=== PATIENT | male | born 1940 | race Caucasian/White ===

== ENCOUNTER 2019-04-18 21:56 | Inpatient (IN) | payer OTHER ==
[~2019-04-18] VITALS: Ht 165.1 cm; Wt 52.8 kg
[2019-04-18] MEDS ORDERED: MAGNESIUM HYDROXIDE 30 ML LIQUID UDC PO PRN (22:30)
[2019-04-18] MEDS ORDERED: TEMAZEPAM 7.5 MG CAPSULE PO PRN (22:30)
[2019-04-18] MEDS ORDERED: MAG HYDROX/AL HYDROX/SIMETH 30 ML LIQUID UDC PO PRN (22:30)
[2019-04-18 22:40] VITALS: BP 148/78
[2019-04-18] MEDS: ACETAMINOPHEN 325 MG TABLET PO PRN (23:12)
--- NOTE | 2019-04-19 01:17 | NUR ---
received to care, a transfer from [facility], on a 72 hour hold for gravely disabled, a resident of [facility]. according to the hold, he was discharged from [facility] on 04/16/19 to the [facility], but the first night was agitated, non compliant, and aggressive, so he was sent back to [place], on 04/17/19. during his previous admission, he had a suicide attempt. upon arrival, he was confused and disoriented. he did state that he was not suicidal, at this time, but acknowledged being so, in the past. pt was advised of [facility], and given pt rights booklet. he appeared very restless, with unsteady gait. placed in the grover chair, for safety. PRN restoril was given at 2312 for insomnia, but remains awake, but less restless, and more directable. no distress noted. monitored closely, for safety.
[2019-04-19] MEDS ORDERED: BLOO-668 IN (03:05)
[2019-04-19] MEDS ORDERED: MIRT15TA PO (03:05)
[2019-04-19] MEDS ORDERED: RIVA1PAT3 PO (03:05)
[2019-04-19] MEDS ORDERED: RISP0.5T5 PO (03:05)
[2019-04-19] MEDS ORDERED: RISP0.253 PO (03:05)
[2019-04-19] MEDS ORDERED: DONE10TA44 PO (03:05)
[2019-04-19] MEDS ORDERED: INSU100V10 SQ (03:05)
[2019-04-19] MEDS ORDERED: MEMA10TA PO (03:05)
[2019-04-19] MEDS ORDERED: NUT.237L36 PO (03:05)
[2019-04-19] MEDS ORDERED: ASPI-605 PO (03:05)
[2019-04-19] MEDS ORDERED: ALBU8.5H8 IH (03:05)
[2019-04-19] MEDS ORDERED: DOCU250C14 PO (03:05)
[2019-04-19] MEDS ORDERED: GUAI600T53 PO (03:05)
[2019-04-19] MEDS ORDERED: FLUT1BLS IH (03:05)
[2019-04-19] MEDS ORDERED: BUDE10.2 INH (03:05)
[2019-04-19] MEDS ORDERED: CHOL100062 PO (03:05)
--- NOTE | 2019-04-19 04:00 | NUR ---
remains restless and easily agitated. assisted to bathroom several times. fluids given. continues to attempt to get out of chair. unable to contract for safety. occasionally becomes verbally hostile, and posturing with his fists. difficult to redirect. will continue to monitor closely.
--- NOTE | 2019-04-19 05:10 | NUR ---
appears to be asleep. no distress noted.
--- NOTE | 2019-04-19 05:33 | NUR ---
is now awake, attempting to climb out of chair. monitored closely for safety.
--- NOTE | 2019-04-19 06:37 | NUR ---
slept 1 hour, total. is now dozing off, intermittently. cooperative with lab draw. AM accucheck was 89. no distress noted.
[2019-04-19 07:12] LABS: ALANINE AMINOTRANSFERASE 21 U/L (16-63); ALKALINE PHOSPHATASE 74 U/L (50-136); ASPARTATE AMINOTRANSFERASE 21 U/L (15-37); BILIRUBIN,TOTAL 0.8 mg/dL (0.2-1.0); CARBON DIOXIDE 25 mmol/L (21-32); CHLORIDE 106 mmol/L (98-107); CREATININE 1.4 mg/dL (0.6-1.3); GLUCOSE 91 mg/dL (74-106); POTASSIUM 4.1 mmol/L (3.5-5.1); TOTAL PROTEIN, SERUM 6.9 g/dL (6.4-8.2); UREA NITROGEN, BLOOD 17 mg/dL (7-18)
[2019-04-19 07:30] VITALS: BP 133/64
[2019-04-19] MEDS: LORAZEPAM 0.5 MG TABLET PO PRN ×2 (08:01→15:31)
[2019-04-19] MEDS: ACETAMINOPHEN 325 MG TABLET PO PRN (08:01)
[2019-04-19] MEDS ORDERED: ALBUTEROL SULFATE 2.5 MG/3 ML NEBU NEB PRN (12:30)
[2019-04-19] MEDS ORDERED: INSULIN REGULAR, HUMAN 300 UNIT/3 ML VIAL SQ PRN (12:30)
[2019-04-19] MEDS ORDERED: DEXTROSE 50% 50 ML DISP.SYRIN IV PRN (12:30)
[2019-04-19] MEDS ORDERED: ALBUTEROL SULFATE 8 GM HFA.AER.AD IH PRN (13:15)
[2019-04-19] MEDS ORDERED: risperiDONE 0.25 MG TABLET PO SCH (13:45)
[2019-04-19] MEDS: risperiDONE 1 MG TABLET PO SCH ×2 (13:57→21:12)
[2019-04-19] MEDS: GLUCERNA 1.2 1000ML LIQUID PO SCH ×2 (14:10→16:30)
[2019-04-19 16:00] VITALS: BP 148/77
[2019-04-19] MEDS: BLOOD SUGAR DIAGNOSTIC 1 EACH STRIP VI SCH ×2 (16:29→21:27)
[2019-04-19 19:43] VITALS: BP 127/61
[2019-04-19] MEDS: INSULIN GLARGINE,HUM 300 UNITS/3 ML CARTRIDGE SQ SCH (21:00)
[2019-04-19] MEDS ORDERED: FLUTICASONE/SALMETEROL 250/50 INHALER INH SCH (21:00)
--- NOTE | 2019-04-19 21:10 | NUR ---
[facility] paged through [address] regarding the need for H&P and CXR follow up. Awaiting call back.
[2019-04-19] MEDS: GUAIFENESIN LA 600 MG TABLET.SA PO SCH (21:11)
[2019-04-19] MEDS: MIRTAZAPINE 15 MG TABLET PO SCH (21:12)
--- NOTE | 2019-04-19 21:52 | NUR ---
RECEIVED PATIENT IN BED SLEEPING INTERMITTENTLY WITH 1;1 SITTER BY HIS SIDE FOR SAFETY.HE WAS COOPERATIVE WITH HIS MEDS WHICH WAS CRUSHED IN APPLESAUCE WITH HEAD OF BED RAISED TO PREVENT ASPIRATION. ON BLOOD SUGAR CHECK WITH INSULIN LANTUS COVERAGE. BS101 SO LANTUS WAS HELD .WILL CONTINUE TO MONITOR.
--- NOTE | 2019-04-20 06:56 | NUR ---
SLEPT APPROX.FOR 06;00HRS.BLOOD SUGAR CHECK IS 71.ORANGE JUICE GIVEN.
[2019-04-20] MEDS: BLOOD SUGAR DIAGNOSTIC 1 EACH STRIP VI SCH ×4 (07:03→20:53)
[2019-04-20 07:58] VITALS: BP 119/61
[2019-04-20] MEDS: risperiDONE 1 MG TABLET PO SCH ×2 (08:17→20:41)
[2019-04-20] MEDS: CHOLECALCIFEROL 1,000 UNIT TABLET PO SCH (08:17)
[2019-04-20] MEDS: DOCUSATE SODIUM 100 MG CAPSULE PO SCH (08:17)
[2019-04-20] MEDS: FLUTICASONE/VILANTEROL 1 EACH BLST.W.DEV IH SCH (08:17)
[2019-04-20] MEDS: GUAIFENESIN LA 600 MG TABLET.SA PO SCH ×2 (08:17→20:41)
[2019-04-20] MEDS: ASPIRIN EC 81 MG TABLET.DR PO SCH (08:17)
[2019-04-20] MEDS: GLUCERNA 1.2 1000ML LIQUID PO SCH ×3 (08:18→16:53)
[2019-04-20] MEDS ORDERED: DOCUSATE SODIUM 250 MG CAPSULE PO SCH (09:00)
[2019-04-20 14:17] LABS: BASOPHILS % (AUTO) 0.5 % (0.0-2.0); EOSINOPHILS # (AUTO) 0.3 K/uL (0.0-0.7); EOSINOPHILS % (AUTO) 4.2 % (0.0-7.0); HEMATOCRIT 37.4 % (36.7-47.1); HEMOGLOBIN 12.6 g/dL (12.5-16.3); LYMPHOCYTES # (AUTO) 1.4 K/uL (20.0-40.0); LYMPHOCYTES % (AUTO) 21.5 % (20.5-51.5); MEAN CORPUSCULAR HEMOGLOBIN 33.6 uug (23.8-33.4); MEAN CORPUSCULAR HGB CONC 34 g/dL (32.5-36.3); MEAN CORPUSCULAR VOLUME 99.6 fL (73.0-96.2); MONOCYTES # (AUTO) 0.4 K/uL (2.0-10.0); MONOCYTES % (AUTO) 6.9 % (0.0-11.0); NEUTROPHILS # (AUTO) 4.3 K/uL (1.8-8.9); NEUTROPHILS % (AUTO) 66.9 % (38.5-71.5); PLATELET COUNT (AUTO) 228 K/uL (152-348); RED BLOOD CELL COUNT(AUTO) 3.75 MIL/uL (4.06-5.63); WHITE BLOOD COUNT (AUTO) 6.4 K/uL (3.6-10.2)
[2019-04-20 15:20] VITALS: BP 128/62
[2019-04-20] MEDS: LORAZEPAM 0.5 MG TABLET PO PRN ×2 (17:34→22:44)
[2019-04-20 19:39] VITALS: BP 113/67
[2019-04-20] MEDS: MIRTAZAPINE 15 MG TABLET PO SCH (20:41)
[2019-04-20] MEDS: INSULIN GLARGINE,HUM 300 UNITS/3 ML CARTRIDGE SQ SCH (20:54)
--- NOTE | 2019-04-20 21:42 | NUR ---
Sitting in gerichair in H/w cooperative with staff and medication compliant. H.S. blood sugar 115 held routine dose of Lantus states" he will not take his hs snack.
--- NOTE | 2019-04-20 23:00 | NUR ---
Transfer to bed from [facility] pt requested to use B/R to void. While assisting the patient to the b/r pt became confused and refused to use the toilet and tried to void in the trash can. Pt refused to take directions from staff and became very agitated and striking out toward staff. After obtaining assistance from the inside sales lead we were able to walk pt back to his bed.
--- NOTE | 2019-04-20 23:57 | NUR ---
Lying in bed eye closed appear resting comfortably siderails up. Bed alarm on,
--- NOTE | 2019-04-21 01:00 | NUR ---
Awake refusing to return to bed. gait unsteady.Offered toilet and h20. Placed in h/w grover chair for pt safety.
--- NOTE | 2019-04-21 03:30 | NUR ---
Pt finally fell asleep eyes closed resp even unlab.
[2019-04-21] MEDS: BLOOD SUGAR DIAGNOSTIC 1 EACH STRIP VI SCH ×2 (06:26→11:30)
--- NOTE | 2019-04-21 06:49 | NUR ---
Slept 3.3 hours of intermittent sleep. lying in bed eyes closed resp even and unlab. Side rails up Bed alarm on.
[2019-04-21 07:30] VITALS: BP 127/71
[2019-04-21] MEDS: CHOLECALCIFEROL 1,000 UNIT TABLET PO SCH (08:38)
[2019-04-21] MEDS: risperiDONE 1 MG TABLET PO SCH (08:38)
[2019-04-21] MEDS: ASPIRIN EC 81 MG TABLET.DR PO SCH (08:38)
[2019-04-21] MEDS: DOCUSATE SODIUM 100 MG CAPSULE PO SCH (08:38)
[2019-04-21] MEDS: GUAIFENESIN LA 600 MG TABLET.SA PO SCH (08:38)
[2019-04-21] MEDS: GLUCERNA 1.2 1000ML LIQUID PO SCH (08:39)
[2019-04-21] MEDS: FLUTICASONE/VILANTEROL 1 EACH BLST.W.DEV IH SCH (08:44)
--- NOTE | 2019-04-21 12:55 | NUR ---
GPS: Nursing Notes: Discharge to ER: Patient's LOC changed, SOB, O2 Sat. 44%, at 12:45hrs, charge nurse called rapid respond, B/P=175/111, 97, labor respiration, transfer to ER at this time, Dr. Cullen and Lacy notified.
--- NOTE | 2019-04-21 12:55 | NUR ---
GPS: Nursing Notes: Discharge to ER: Report and med. reconciliation given to nurse Angel GARDNER.
[2019-04-21] MEDS ORDERED: RISP1TAB27 PO (14:03)
[2019-04-21] MEDS ORDERED: MAG355OR18 PO (14:03)
[2019-04-21] MEDS ORDERED: GUAI600T53 PO (14:03)
[2019-04-21] MEDS ORDERED: MIRT15TA PO (14:03)
[2019-04-21] MEDS ORDERED: ALBU2.5V7 IH (14:03)
[2019-04-21] MEDS ORDERED: ACET325T53 PO (14:03)
[2019-04-21] MEDS ORDERED: DEXT50DI8 IV (14:03)
[2019-04-21] MEDS ORDERED: MAGN400O6 PO (14:03)
[2019-04-21] MEDS ORDERED: NUT.237L30 PO (14:03)
[2019-04-21] MEDS ORDERED: LORA-258 PO (14:03)
== END 2019-04-21 12:55 | disposition short-term general hospital (02) | DRG 885 ==
LOC: GPS 21:56
PROVIDERS: ADMIT Psychiatry & Neurology Psychiatry; ATTEND Nurse Practitioner Acute Care
DX: F29 Unspecified psychosis not due to a substance or known physiological condition (principal); I11.0 Hypertensive heart disease with heart failure; I50.33 Acute on chronic diastolic (congestive) heart failure; J44.9 Chronic obstructive pulmonary disease, unspecified; E11.9 Type 2 diabetes mellitus without complications; E78.5 Hyperlipidemia, unspecified; I10 Essential (primary) hypertension; G47.00 Insomnia, unspecified; F03.90 Unspecified dementia, unspecified severity, without behavioral disturbance, psychotic disturbance, mood disturbance, and anxiety; Z91.19 Patient's noncompliance with other medical treatment and regimen
CPT/HCPCS: 36415; 71045; 85025; J1815; Z7610

== ENCOUNTER 2019-04-21 13:02 | Inpatient (IN) | payer MEDICARE, OTHER ==
[~2019-04-21] VITALS: Ht 175.3 cm; Wt 57.6 kg
[2019-04-21] VITALS (8 sets, daily range): BP systolic 99–153; BP diastolic 50–91
[~2019-04-21 13:02] MED LIST: ALBU8.5H8 IH; ASPI-605 PO; BLOO-668 IN; BUDE10.2 INH; CHOL100062 PO; DOCU250C14 PO; FLUT1BLS IH; GUAI600T53 PO; INSU100V10 SQ; NUT.237L36 PO
[2019-04-21] MEDS ORDERED: IPRATROPIUM BROMIDE 0.5 MG/2.5 ML NEBU ONE (13:13)
[2019-04-21] MEDS ORDERED: ALBUTEROL SULFATE 2.5 MG/3 ML NEBU ONE (13:13)
[2019-04-21] MEDS ORDERED: IV NORMAL SALINE 500 ML BAG IV ONE (13:15)
[2019-04-21] MEDS ORDERED: ALBUTEROL SULFATE 2.5 MG/3 ML NEBU NEB ONE (13:15)
[2019-04-21] MEDS ORDERED: IPRATROPIUM BROMIDE 0.5 MG/2.5 ML NEBU NEB ONE (13:15)
[2019-04-21 13:43] LABS: BASOPHILS # (AUTO) 0.1 K/uL (0.0-8.0); BASOPHILS % (AUTO) 0.6 % (0.0-2.0); EOSINOPHILS # (AUTO) 0.3 K/uL (0.0-0.7); EOSINOPHILS % (AUTO) 3.4 % (0.0-7.0); HEMATOCRIT 42.2 % (36.7-47.1); HEMOGLOBIN 14.2 g/dL (12.5-16.3); LYMPHOCYTES # (AUTO) 3.1 K/uL (20.0-40.0); LYMPHOCYTES % (AUTO) 32.7 % (20.5-51.5); MEAN CORPUSCULAR HEMOGLOBIN 33.5 uug (23.8-33.4); MEAN CORPUSCULAR HGB CONC 34 g/dL (32.5-36.3); MEAN CORPUSCULAR VOLUME 99.5 fL (73.0-96.2); MONOCYTES # (AUTO) 0.5 K/uL (2.0-10.0); MONOCYTES % (AUTO) 5.6 % (0.0-11.0); NEUTROPHILS # (AUTO) 5.5 K/uL (1.8-8.9); NEUTROPHILS % (AUTO) 57.7 % (38.5-71.5); PLATELET COUNT (AUTO) 240 K/uL (152-348); RED BLOOD CELL COUNT(AUTO) 4.25 MIL/uL (4.06-5.63); WHITE BLOOD COUNT (AUTO) 9.6 K/uL (3.6-10.2)
[2019-04-21 13:46] LABS: CARBON DIOXIDE 24 mmol/L (21-32); CHLORIDE 107 mmol/L (98-107); CREATININE 1.5 mg/dL (0.6-1.3); GLUCOSE 145 mg/dL (74-106); POTASSIUM 4.3 mmol/L (3.5-5.1); UREA NITROGEN, BLOOD 18 mg/dL (7-18)
[2019-04-21 13:47] LABS: ABG BASE EXCESS 0.2 mmol/L; ABG HCO3 26.5 mmol/L; ABG PCO2 48.9 mmHg (35.0-45.0); ABG PH 7.351 (7.350-7.450); ABG PO2 68.4 mmHg (75.0-100.0); ABG SITE RIGHT RADIAL; ABG TOTAL HEMOGLOBIN 13.8 G/dL (13.5-18.0); COHb 1.2 % (0.5-1.5); MetHb 0.3 % (0.0-1.5); O2Hb 90.7 % (94.0-97.0); VENT MODE Nasal Cannula
[2019-04-21 13:52] LABS: ALANINE AMINOTRANSFERASE 16 U/L (16-63); ALKALINE PHOSPHATASE 72 U/L (50-136); ASPARTATE AMINOTRANSFERASE 16 U/L (15-37); BILIRUBIN,DIRECT 0.1 mg/dL (0.0-0.2); BILIRUBIN,TOTAL 0.5 mg/dL (0.2-1.0); TOTAL PROTEIN, SERUM 6.9 g/dL (6.4-8.2)
[2019-04-21] MEDS ORDERED: GUAI600T53 PO (14:03)
[2019-04-21] MEDS ORDERED: DEXT50DI8 IV (14:03)
[2019-04-21] MEDS ORDERED: MIRT15TA PO (14:03)
[2019-04-21] MEDS ORDERED: RISP1TAB27 PO (14:03)
[2019-04-21] MEDS ORDERED: LORA-258 PO (14:03)
[2019-04-21] MEDS ORDERED: MAG355OR18 PO (14:03)
[2019-04-21] MEDS ORDERED: ACET325T53 PO (14:03)
[2019-04-21] MEDS ORDERED: ALBU2.5V7 IH (14:03)
[2019-04-21] MEDS ORDERED: NUT.237L30 PO (14:03)
[2019-04-21] MEDS ORDERED: MAGN400O6 PO (14:03)
[2019-04-21] MEDS: POTASSIUM CHLORIDE 50 ML IV SCH ×4 (14:10→18:46)
[2019-04-21] MEDS ORDERED: POTASSIUM CHLORIDE 50 ML ONE (14:12)
[2019-04-21] MEDS ORDERED: ALBUTEROL SULFATE 2.5 MG/3 ML NEBU IH PRN (15:45)
[2019-04-21] MEDS ORDERED: HALOPERIDOL LACTATE 5 MG/1 ML VIAL IM ONE (15:45)
[2019-04-21] MEDS ORDERED: ONDANSETRON 4 MG/2 ML VIAL IV PRN (15:45)
[2019-04-21] MEDS ORDERED: OLANZAPINE 10 MG VIAL IM ONE (15:45)
[2019-04-21] MEDS ORDERED: DEXAMETHASONE SOD PHOSPHATE 10 MG INJ IV ONE (15:45)
[2019-04-21] MEDS ORDERED: DEXTROSE 50% 50 ML DISP.SYRIN IV PRN (16:00)
[2019-04-21] MEDS: BLOOD SUGAR DIAGNOSTIC 1 EACH STRIP VI SCH ×2 (16:15→21:09)
[2019-04-21] MEDS: IV NS 1000 ML 1,000 ML IV PRN (16:29)
[2019-04-21] MEDS ORDERED: VANCOMYCIN IV 1 G in PREMIXED 0 EACH IV SCH (16:45)
[2019-04-21] MEDS: INSULIN REGULAR, HUMAN 300 UNIT/3 ML VIAL SQ PRN (16:57)
[2019-04-21] MEDS: CEFTRIAXONE 1 G in IV DEXTROSE 5% 50 ML IV SCH (17:31)
[2019-04-21] MEDS: LORAZEPAM 0.5 MG TABLET PO PRN (17:33)
[2019-04-21] MEDS ORDERED: LORAZEPAM 2 MG/1 ML VIAL IV ONE (18:15)
[2019-04-21] MEDS: MIRTAZAPINE 15 MG TABLET PO SCH (21:06)
[2019-04-21] MEDS: risperiDONE 1 MG TABLET PO SCH (21:06)
[2019-04-21] MEDS: Z GUARD REMEDY PASTE 57 GM TUBE TOP PRN (21:09)
[2019-04-21 21:12] LABS: *BILIRUBIN,URIN NEGATIVE (NEGATIVE); *BLOOD, URINE NEGATIVE (NEGATIVE); *CLARITY,URINE CLEAR (CLEAR); *COLOR,URINE YELLOW (YELLOW); *KETONES,URINE NEGATIVE (NEGATIVE); *UROBILINOGEN,URINE 0.2 E.U./dl (NORMAL); LEUKOCYTE ESTERASE ,URINE NEGATIVE (NEGATIVE); NITRITE, URINE NEGATIVE (NEGATIVE); PH,URINE 6.5 (5.0-8.0); UGLUCOSE NEGATIVE (NEGATIVE)
[2019-04-22] VITALS (18 sets, daily range): BP systolic 75–126; BP diastolic 35–86
[2019-04-22] MEDS: IV NS 1000 ML 1,000 ML IV PRN ×2 (02:54→18:12)
[2019-04-22 05:04] LABS: BASOPHILS % (AUTO) 0.2 % (0.0-2.0); HEMATOCRIT 37.1 % (36.7-47.1); HEMOGLOBIN 12.6 g/dL (12.5-16.3); LYMPHOCYTES # (AUTO) 0.6 K/uL (20.0-40.0); LYMPHOCYTES % (AUTO) 3.6 % (20.5-51.5); MEAN CORPUSCULAR HEMOGLOBIN 33.7 uug (23.8-33.4); MEAN CORPUSCULAR HGB CONC 34 g/dL (32.5-36.3); MEAN CORPUSCULAR VOLUME 99.7 fL (73.0-96.2); MONOCYTES # (AUTO) 0.5 K/uL (2.0-10.0); NEUTROPHILS # (AUTO) 14.8 K/uL (1.8-8.9); NEUTROPHILS % (AUTO) 93.2 % (38.5-71.5); PLATELET COUNT (AUTO) 185 K/uL (152-348); RED BLOOD CELL COUNT(AUTO) 3.72 MIL/uL (4.06-5.63); WHITE BLOOD COUNT (AUTO) 15.9 K/uL (3.6-10.2)
[2019-04-22 05:15] LABS: CARBON DIOXIDE 25 mmol/L (21-32); CHLORIDE 109 mmol/L (98-107); CREATININE 1.3 mg/dL (0.6-1.3); GLUCOSE 131 mg/dL (74-106); MAGNESIUM 2.1 mg/dL (1.8-2.4); PHOSPHOROUS 3.6 mg/dL (2.5-4.9); POTASSIUM 5.5 mmol/L (3.5-5.1); UREA NITROGEN, BLOOD 21 mg/dL (7-18)
[2019-04-22 06:00] LABS: BAND % (MANUAL) 22 % (0-10); NEUTROPHILS % (MANUAL) 69 % (42-75)
[2019-04-22 06:01] LABS: LYMPHOCYTES % (MANUAL) 6 % (20-40); MONOCYTES % (MANUAL) 3 % (2-10)
[2019-04-22] MEDS: BLOOD SUGAR DIAGNOSTIC 1 EACH STRIP VI SCH ×4 (07:35→20:04)
[2019-04-22] MEDS: risperiDONE 1 MG TABLET PO SCH ×2 (08:05→20:19)
[2019-04-22] MEDS: ASPIRIN EC 81 MG TABLET.DR PO SCH (08:05)
[2019-04-22] MEDS: FLUTICASONE/VILANTEROL 1 EACH BLST.W.DEV IH SCH (08:05)
[2019-04-22] MEDS: LORAZEPAM 0.5 MG TABLET PO PRN (08:13)
[2019-04-22] MEDS ORDERED: VANCOMYCIN IV 1 G in PREMIXED 0 EACH IV ONE (10:00)
[2019-04-22] MEDS: ALBUTEROL SULFATE 2.5 MG/3 ML NEBU NEB SCH ×3 (11:41→19:13)
[2019-04-22] MEDS: IPRATROPIUM BROMIDE 0.5 MG/2.5 ML NEBU NEB SCH ×3 (11:42→19:13)
[2019-04-22] MEDS ORDERED: IV NORMAL SALINE 500 ML IV ONE (13:30)
[2019-04-22] MEDS: LORAZEPAM 2 MG/1 ML VIAL IV PRN (16:10)
[2019-04-22] MEDS: CEFTRIAXONE 1 G in IV DEXTROSE 5% 50 ML IV SCH (16:18)
[2019-04-22] MEDS: MIRTAZAPINE 15 MG TABLET PO SCH (20:19)
[2019-04-22] MEDS: CULTURELLE CAPSULE PO SCH (20:19)
[2019-04-22] MEDS: ACETAMINOPHEN 325 MG TABLET PO PRN (23:31)
[2019-04-23] VITALS (7 sets, daily range): BP systolic 104–138; BP diastolic 50–92
[2019-04-23] MEDS: LORAZEPAM 2 MG/1 ML VIAL IV PRN ×2 (02:31→18:24)
[2019-04-23 06:38] LABS: BASOPHILS % (AUTO) 0.2 % (0.0-2.0); EOSINOPHILS % (AUTO) 0.2 % (0.0-7.0); HEMATOCRIT 36.7 % (36.7-47.1); HEMOGLOBIN 12.5 g/dL (12.5-16.3); LYMPHOCYTES # (AUTO) 1.5 K/uL (20.0-40.0); LYMPHOCYTES % (AUTO) 10.9 % (20.5-51.5); MEAN CORPUSCULAR HEMOGLOBIN 34.2 uug (23.8-33.4); MEAN CORPUSCULAR HGB CONC 34 g/dL (32.5-36.3); MONOCYTES # (AUTO) 0.7 K/uL (2.0-10.0); NEUTROPHILS # (AUTO) 11.8 K/uL (1.8-8.9); NEUTROPHILS % (AUTO) 83.7 % (38.5-71.5); PLATELET COUNT (AUTO) 177 K/uL (152-348); RED BLOOD CELL COUNT(AUTO) 3.67 MIL/uL (4.06-5.63); WHITE BLOOD COUNT (AUTO) 14.1 K/uL (3.6-10.2)
[2019-04-23 06:52] LABS: CARBON DIOXIDE 24 mmol/L (21-32); CHLORIDE 110 mmol/L (98-107); CREATININE 1.2 mg/dL (0.6-1.3); GLUCOSE 97 mg/dL (74-106); POTASSIUM 4.8 mmol/L (3.5-5.1); UREA NITROGEN, BLOOD 18 mg/dL (7-18); VANCOMYCIN,RANDOM 11.9 ug/mL (18.0-26.0)
[2019-04-23] MEDS: IV NS 1000 ML 1,000 ML IV PRN ×2 (07:37→18:37)
[2019-04-23] MEDS: CULTURELLE CAPSULE PO SCH ×2 (08:07→20:58)
[2019-04-23] MEDS: ASPIRIN EC 81 MG TABLET.DR PO SCH (08:07)
[2019-04-23] MEDS: risperiDONE 1 MG TABLET PO SCH (08:07)
[2019-04-23] MEDS: FLUTICASONE/VILANTEROL 1 EACH BLST.W.DEV IH SCH (08:08)
[2019-04-23] MEDS: ALBUTEROL SULFATE 2.5 MG/3 ML NEBU NEB SCH ×4 (08:12→20:06)
[2019-04-23] MEDS: IPRATROPIUM BROMIDE 0.5 MG/2.5 ML NEBU NEB SCH ×4 (08:12→20:06)
[2019-04-23] MEDS: BLOOD SUGAR DIAGNOSTIC 1 EACH STRIP VI SCH ×4 (08:21→21:07)
[2019-04-23] MEDS ORDERED: VANCOMYCIN IV 1 G in PREMIXED 0 EACH IV ONE (10:00)
[2019-04-23] MEDS: INSULIN REGULAR, HUMAN 300 UNIT/3 ML VIAL SQ PRN (11:51)
[2019-04-23] MEDS: CEFTRIAXONE 1 G in IV DEXTROSE 5% 50 ML IV SCH (16:37)
[2019-04-23] MEDS: risperiDONE 0.5 MG TABLET PO SCH (20:58)
[2019-04-23] MEDS: MIRTAZAPINE 15 MG TABLET PO SCH (20:58)
[2019-04-23] MEDS: METOPROLOL TARTRATE 25 MG TABLET PO SCH (21:00)
[2019-04-24] VITALS (7 sets, daily range): BP systolic 119–143; BP diastolic 50–78
[2019-04-24] MEDS: IV NS 1000 ML 1,000 ML IV PRN ×2 (00:28→16:33)
[2019-04-24 06:50] LABS: BASOPHILS # (AUTO) 0.1 K/uL (0.0-8.0); BASOPHILS % (AUTO) 0.6 % (0.0-2.0); EOSINOPHILS # (AUTO) 0.2 K/uL (0.0-0.7); EOSINOPHILS % (AUTO) 1.8 % (0.0-7.0); HEMATOCRIT 35.1 % (36.7-47.1); HEMOGLOBIN 12.2 g/dL (12.5-16.3); LYMPHOCYTES % (AUTO) 10.9 % (20.5-51.5); MEAN CORPUSCULAR HGB CONC 35 g/dL (32.5-36.3); MEAN CORPUSCULAR VOLUME 100.9 fL (73.0-96.2); MONOCYTES # (AUTO) 0.7 K/uL (2.0-10.0); MONOCYTES % (AUTO) 7.5 % (0.0-11.0); NEUTROPHILS % (AUTO) 79.2 % (38.5-71.5); PLATELET COUNT (AUTO) 187 K/uL (152-348); RED BLOOD CELL COUNT(AUTO) 3.48 MIL/uL (4.06-5.63); WHITE BLOOD COUNT (AUTO) 8.9 K/uL (3.6-10.2)
[2019-04-24] MEDS: BLOOD SUGAR DIAGNOSTIC 1 EACH STRIP VI SCH ×4 (06:50→20:26)
[2019-04-24 06:58] LABS: CARBON DIOXIDE 28 mmol/L (21-32); CHLORIDE 110 mmol/L (98-107); CREATININE 1.2 mg/dL (0.6-1.3); GLUCOSE 88 mg/dL (74-106); MAGNESIUM 1.8 mg/dL (1.8-2.4); PHOSPHOROUS 2.9 mg/dL (2.5-4.9); POTASSIUM 4.7 mmol/L (3.5-5.1); UREA NITROGEN, BLOOD 14 mg/dL (7-18)
[2019-04-24] MEDS: IPRATROPIUM BROMIDE 0.5 MG/2.5 ML NEBU NEB SCH ×3 (07:22→19:45)
[2019-04-24] MEDS: ALBUTEROL SULFATE 2.5 MG/3 ML NEBU NEB SCH (07:22)
[2019-04-24] MEDS ORDERED: LEVALBUTEROL HCL NEB 0.63 MG/3 ML NEBU NEB PRN (07:45)
[2019-04-24] MEDS: risperiDONE 0.5 MG TABLET PO SCH ×2 (08:52→20:26)
[2019-04-24] MEDS: METOPROLOL TARTRATE 25 MG TABLET PO SCH ×2 (08:53→20:28)
[2019-04-24] MEDS: CULTURELLE CAPSULE PO SCH ×2 (08:53→20:27)
[2019-04-24] MEDS: ASPIRIN EC 81 MG TABLET.DR PO SCH (08:54)
[2019-04-24] MEDS: FLUTICASONE/VILANTEROL 1 EACH BLST.W.DEV IH SCH (09:00)
[2019-04-24] MEDS: VANCOMYCIN IV 1 G in PREMIXED 0 EACH IV SCH (11:22)
[2019-04-24] MEDS: LEVALBUTEROL HCL NEB 0.63 MG/3 ML NEBU NEB SCH ×2 (13:20→19:44)
[2019-04-24] MEDS: CEFTRIAXONE 1 G in IV DEXTROSE 5% 50 ML IV SCH (16:32)
[2019-04-24 17:19] LABS: IRON, SERUM 13 ug/dL (50-175)
[2019-04-24 17:28] LABS: FERRITIN 375 ng/mL (26-388)
[2019-04-24] MEDS: LORAZEPAM 2 MG/1 ML VIAL IV PRN (18:08)
[2019-04-24] MEDS: MIRTAZAPINE 15 MG TABLET PO SCH (20:26)
[2019-04-24] MEDS: Z GUARD REMEDY PASTE 57 GM TUBE TOP PRN (20:30)
[2019-04-25] VITALS: BP 130/75
[2019-04-25 00:28] VITALS: BP 130/73
[2019-04-25 04:00] VITALS: BP 135/79
[2019-04-25] MEDS: IV NS 1000 ML 1,000 ML IV PRN (06:08)
[2019-04-25] MEDS: BLOOD SUGAR DIAGNOSTIC 1 EACH STRIP VI SCH ×4 (06:50→21:35)
[2019-04-25 07:33] VITALS: BP 124/74
[2019-04-25] MEDS: PANTOPRAZOLE SODIUM 40 MG VIAL IV SCH (08:03)
[2019-04-25] MEDS: risperiDONE 0.5 MG TABLET PO SCH ×2 (08:03→21:43)
[2019-04-25] MEDS: ASPIRIN EC 81 MG TABLET.DR PO SCH (08:03)
[2019-04-25] MEDS: FLUTICASONE/VILANTEROL 1 EACH BLST.W.DEV IH SCH (08:03)
[2019-04-25] MEDS: CULTURELLE CAPSULE PO SCH ×2 (08:04→21:43)
[2019-04-25] MEDS: METOPROLOL TARTRATE 25 MG TABLET PO SCH ×2 (08:05→21:43)
[2019-04-25] MEDS: IPRATROPIUM BROMIDE 0.5 MG/2.5 ML NEBU NEB SCH ×3 (08:08→21:00)
[2019-04-25] MEDS: LEVALBUTEROL HCL NEB 0.63 MG/3 ML NEBU NEB SCH ×3 (08:08→21:00)
[2019-04-25 11:31] VITALS: BP 149/84
[2019-04-25] MEDS: VANCOMYCIN IV 1 G in PREMIXED 0 EACH IV SCH (13:13)
[2019-04-25 16:00] VITALS: BP 152/83
[2019-04-25] MEDS: CEFTRIAXONE 1 G in IV DEXTROSE 5% 50 ML IV SCH (16:53)
[2019-04-25] MEDS: LORAZEPAM 2 MG/1 ML VIAL IV PRN (20:14)
[2019-04-25] MEDS: MIRTAZAPINE 15 MG TABLET PO SCH (21:44)
[2019-04-26] MEDS ORDERED: INSULIN REGULAR, HUMAN 300 UNIT/3 ML VIAL SQ PRN (02:45)
[2019-04-26] MEDS ORDERED: DEXTROSE 50% 50 ML DISP.SYRIN IV PRN (02:45)
[2019-04-26] MEDS: IV NS 1000 ML 1,000 ML IV PRN (03:59)
[2019-04-26 04:25] VITALS: BP 120/66
[2019-04-26] MEDS: BLOOD SUGAR DIAGNOSTIC 1 EACH STRIP VI SCH ×3 (06:01→17:28)
[2019-04-26] MEDS: IPRATROPIUM BROMIDE 0.5 MG/2.5 ML NEBU NEB SCH ×3 (08:01→19:51)
[2019-04-26] MEDS: LEVALBUTEROL HCL NEB 0.63 MG/3 ML NEBU NEB SCH ×3 (08:02→19:52)
[2019-04-26] MEDS: METOPROLOL TARTRATE 25 MG TABLET PO SCH ×2 (09:00→21:00)
[2019-04-26] MEDS: CULTURELLE CAPSULE PO SCH ×2 (09:00→21:00)
[2019-04-26] MEDS: ASPIRIN EC 81 MG TABLET.DR PO SCH (09:00)
[2019-04-26] MEDS: FLUTICASONE/VILANTEROL 1 EACH BLST.W.DEV IH SCH (09:00)
[2019-04-26] MEDS: risperiDONE 0.5 MG TABLET PO SCH ×2 (09:00→21:00)
[2019-04-26 09:01] VITALS: BP 106/70
[2019-04-26] MEDS: PANTOPRAZOLE SODIUM 40 MG VIAL IV SCH (10:56)
[2019-04-26] MEDS ORDERED: IV LACTATED RINGERS SOLUTION 1,000 ML IV SCH (11:45)
[2019-04-26 12:00] VITALS: BP 140/63
[2019-04-26] MEDS: IV NS 1000 ML 1,000 ML IV SCH ×2 (12:00→21:26)
[2019-04-26 12:19] LABS: CARBON DIOXIDE 26 mmol/L (21-32); CHLORIDE 109 mmol/L (98-107); CREATININE 0.9 mg/dL (0.6-1.3); GLUCOSE 94 mg/dL (74-106); MAGNESIUM 1.6 mg/dL (1.8-2.4); POTASSIUM 3.8 mmol/L (3.5-5.1); UREA NITROGEN, BLOOD 12 mg/dL (7-18)
[2019-04-26] MEDS: ACETYLCYSTEINE 20% 800 MG/4 ML VIAL NEB SCH ×2 (13:08→19:51)
[2019-04-26] MEDS: LORAZEPAM 2 MG/1 ML VIAL IV PRN ×2 (13:44→21:37)
[2019-04-26] MEDS: MAGNESIUM SULFATE/D5W 100 ML IV SCH ×4 (15:16→18:41)
[2019-04-26] MEDS: VANCOMYCIN IV 1 G in PREMIXED 0 EACH IV SCH (16:06)
[2019-04-26 16:33] VITALS: BP 146/76
[2019-04-26] MEDS: CEFTRIAXONE 1 G in IV DEXTROSE 5% 50 ML IV SCH (17:53)
[2019-04-26 19:52] VITALS: BP 122/58
[2019-04-26] MEDS: MIRTAZAPINE 15 MG TABLET PO SCH (21:00)
[2019-04-27 00:04] VITALS: BP 121/63
[2019-04-27] MEDS: BLOOD SUGAR DIAGNOSTIC 1 EACH STRIP VI SCH ×5 (00:08→23:29)
[2019-04-27 04:33] VITALS: BP 94/51
[2019-04-27 06:29] LABS: BASOPHILS # (AUTO) 0.1 K/uL (0.0-8.0); BASOPHILS % (AUTO) 0.7 % (0.0-2.0); EOSINOPHILS # (AUTO) 0.3 K/uL (0.0-0.7); EOSINOPHILS % (AUTO) 3.4 % (0.0-7.0); HEMATOCRIT 39.1 % (36.7-47.1); HEMOGLOBIN 13.1 g/dL (12.5-16.3); LYMPHOCYTES # (AUTO) 1.4 K/uL (20.0-40.0); LYMPHOCYTES % (AUTO) 14.7 % (20.5-51.5); MEAN CORPUSCULAR HEMOGLOBIN 33.3 uug (23.8-33.4); MEAN CORPUSCULAR HGB CONC 34 g/dL (32.5-36.3); MEAN CORPUSCULAR VOLUME 99.2 fL (73.0-96.2); MONOCYTES % (AUTO) 10.5 % (0.0-11.0); NEUTROPHILS # (AUTO) 6.5 K/uL (1.8-8.9); NEUTROPHILS % (AUTO) 70.7 % (38.5-71.5); PLATELET COUNT (AUTO) 250 K/uL (152-348); RED BLOOD CELL COUNT(AUTO) 3.94 MIL/uL (4.06-5.63); WHITE BLOOD COUNT (AUTO) 9.2 K/uL (3.6-10.2)
[2019-04-27 06:48] LABS: CARBON DIOXIDE 27 mmol/L (21-32); CHLORIDE 108 mmol/L (98-107); CREATININE 0.9 mg/dL (0.6-1.3); GLUCOSE 83 mg/dL (74-106); PHOSPHOROUS 2.7 mg/dL (2.5-4.9); UREA NITROGEN, BLOOD 10 mg/dL (7-18)
[2019-04-27 07:30] VITALS: BP 125/70
[2019-04-27] MEDS: IPRATROPIUM BROMIDE 0.5 MG/2.5 ML NEBU NEB SCH ×4 (08:02→19:56)
[2019-04-27] MEDS: ACETYLCYSTEINE 20% 800 MG/4 ML VIAL NEB SCH ×2 (08:02→19:56)
[2019-04-27] MEDS: LEVALBUTEROL HCL NEB 0.63 MG/3 ML NEBU NEB SCH ×3 (08:02→19:57)
[2019-04-27] MEDS: FLUTICASONE/VILANTEROL 1 EACH BLST.W.DEV IH SCH (08:12)
[2019-04-27] MEDS: CULTURELLE CAPSULE PO SCH ×2 (08:12→20:14)
[2019-04-27] MEDS: PANTOPRAZOLE SODIUM 40 MG VIAL IV SCH (08:12)
[2019-04-27] MEDS: risperiDONE 0.5 MG TABLET PO SCH ×2 (08:13→20:14)
[2019-04-27] MEDS: METOPROLOL TARTRATE 25 MG TABLET PO SCH (08:13)
[2019-04-27] MEDS: ASPIRIN EC 81 MG TABLET.DR PO SCH (08:13)
[2019-04-27] MEDS ORDERED: METOPROLOL TARTRATE 5 MG/5 ML VIAL IVP PRN (09:30)
[2019-04-27] MEDS: METOPROLOL TARTRATE 5 MG/5 ML VIAL IVP SCH ×2 (10:17→20:31)
[2019-04-27] MEDS: IV NS 1000 ML 1,000 ML IV SCH (11:36)
[2019-04-27 12:05] VITALS: BP 131/65
[2019-04-27] MEDS: VANCOMYCIN IV 1 G in PREMIXED 0 EACH IV SCH (13:40)
[2019-04-27 16:30] VITALS: BP 125/54
[2019-04-27] MEDS: CEFTRIAXONE 1 G in IV DEXTROSE 5% 50 ML IV SCH (16:55)
[2019-04-27] MEDS: IV D5/ 0.9% NACL 1,000 ML IV PRN (19:40)
[2019-04-27] MEDS: LORAZEPAM 2 MG/1 ML VIAL IV PRN (19:46)
[2019-04-27 20:10] VITALS: BP 149/82
[2019-04-27] MEDS: MIRTAZAPINE 15 MG TABLET PO SCH (20:14)
[2019-04-28 00:47] VITALS: BP 144/70
[2019-04-28 04:00] VITALS: BP 137/79
[2019-04-28] MEDS: BLOOD SUGAR DIAGNOSTIC 1 EACH STRIP VI SCH ×4 (05:42→23:39)
[2019-04-28] MEDS: LORAZEPAM 2 MG/1 ML VIAL IV PRN ×2 (06:55→21:10)
[2019-04-28] MEDS: IV D5/ 0.9% NACL 1,000 ML IV PRN ×2 (07:51→22:34)
[2019-04-28] MEDS: PANTOPRAZOLE SODIUM 40 MG VIAL IV SCH (08:08)
[2019-04-28] MEDS: VANCOMYCIN IV 1 G in PREMIXED 0 EACH IV SCH (08:08)
[2019-04-28] MEDS: METOPROLOL TARTRATE 5 MG/5 ML VIAL IVP SCH ×2 (08:11→20:26)
[2019-04-28] MEDS ORDERED: ALBUTEROL SULFATE 1.25 MG/3 ML NEBU NEB PRN (08:15)
[2019-04-28] MEDS: ACETYLCYSTEINE 20% 800 MG/4 ML VIAL NEB SCH ×2 (08:21→19:32)
[2019-04-28] MEDS: risperiDONE 0.5 MG TABLET PO SCH ×2 (08:21→21:00)
[2019-04-28] MEDS: ALBUTEROL SULFATE 1.25 MG/3 ML NEBU NEB SCH ×3 (08:21→19:32)
[2019-04-28] MEDS: ASPIRIN EC 81 MG TABLET.DR PO SCH (08:21)
[2019-04-28] MEDS: CULTURELLE CAPSULE PO SCH ×2 (08:21→21:00)
[2019-04-28] MEDS: IPRATROPIUM BROMIDE 0.5 MG/2.5 ML NEBU NEB SCH ×3 (08:24→19:31)
[2019-04-28] MEDS: FLUTICASONE/VILANTEROL 1 EACH BLST.W.DEV IH SCH (09:00)
[2019-04-28 11:21] VITALS: BP 124/64
[2019-04-28 15:31] VITALS: BP 148/83
[2019-04-28] MEDS: CEFTRIAXONE 1 G in IV DEXTROSE 5% 50 ML IV SCH (17:52)
[2019-04-28 20:14] VITALS: BP 155/78
[2019-04-28] MEDS: MIRTAZAPINE 15 MG TABLET PO SCH (21:00)
[2019-04-29] VITALS (7 sets, daily range): BP systolic 112–153; BP diastolic 58–86
[2019-04-29 04:04] LABS: CARBON DIOXIDE 29 mmol/L (21-32); CHLORIDE 110 mmol/L (98-107); CREATININE 1.1 mg/dL (0.6-1.3); GLUCOSE 123 mg/dL (74-106); MAGNESIUM 1.7 mg/dL (1.8-2.4); PHOSPHOROUS 2.7 mg/dL (2.5-4.9); POTASSIUM 4.2 mmol/L (3.5-5.1); UREA NITROGEN, BLOOD 6 mg/dL (7-18)
[2019-04-29 04:20] LABS: BASOPHILS # (AUTO) 0.1 K/uL (0.0-8.0); EOSINOPHILS # (AUTO) 0.2 K/uL (0.0-0.7); EOSINOPHILS % (AUTO) 2.5 % (0.0-7.0); HEMATOCRIT 40.2 % (36.7-47.1); HEMOGLOBIN 13.9 g/dL (12.5-16.3); LYMPHOCYTES # (AUTO) 1.4 K/uL (20.0-40.0); LYMPHOCYTES % (AUTO) 22.7 % (20.5-51.5); MEAN CORPUSCULAR HEMOGLOBIN 33.6 uug (23.8-33.4); MEAN CORPUSCULAR HGB CONC 35 g/dL (32.5-36.3); MONOCYTES # (AUTO) 0.6 K/uL (2.0-10.0); MONOCYTES % (AUTO) 9.9 % (0.0-11.0); NEUTROPHILS % (AUTO) 63.9 % (38.5-71.5); PLATELET COUNT (AUTO) 289 K/uL (152-348); RED BLOOD CELL COUNT(AUTO) 4.14 MIL/uL (4.06-5.63); WHITE BLOOD COUNT (AUTO) 6.3 K/uL (3.6-10.2)
[2019-04-29] MEDS: VANCOMYCIN IV 1 G in PREMIXED 0 EACH IV SCH (04:34)
[2019-04-29] MEDS: BLOOD SUGAR DIAGNOSTIC 1 EACH STRIP VI SCH ×3 (05:52→17:32)
[2019-04-29] MEDS: IPRATROPIUM BROMIDE 0.5 MG/2.5 ML NEBU NEB SCH ×3 (07:17→19:20)
[2019-04-29] MEDS: ACETYLCYSTEINE 20% 800 MG/4 ML VIAL NEB SCH ×2 (07:17→19:20)
[2019-04-29] MEDS: ALBUTEROL SULFATE 1.25 MG/3 ML NEBU NEB SCH ×3 (07:17→19:20)
[2019-04-29] MEDS: PANTOPRAZOLE SODIUM 40 MG VIAL IV SCH (08:14)
[2019-04-29] MEDS: MAGNESIUM SULFATE/D5W 100 ML IV SCH ×2 (08:14→09:25)
[2019-04-29] MEDS: FLUTICASONE/VILANTEROL 1 EACH BLST.W.DEV IH SCH (08:15)
[2019-04-29] MEDS: METOPROLOL TARTRATE 5 MG/5 ML VIAL IVP SCH ×2 (08:15→20:44)
[2019-04-29] MEDS: ASPIRIN EC 81 MG TABLET.DR PO SCH (09:00)
[2019-04-29] MEDS: risperiDONE 0.5 MG TABLET PO SCH ×2 (09:00→20:44)
[2019-04-29] MEDS: CULTURELLE CAPSULE PO SCH ×2 (09:00→20:44)
[2019-04-29] MEDS ORDERED: IV NORMAL SALINE 1000 ML BAG IV ONE ×2 (11:57)
[2019-04-29] MEDS ORDERED: LIDOCAINE-MPF 2% 5 ML VIAL IJ ONE (11:57)
[2019-04-29] MEDS ORDERED: SIMETHICONE 40 MG/0.6 ML, 30ML BOTTLE MC ONE (11:57)
[2019-04-29] MEDS ORDERED: PROPOFOL 200 MG/20 ML BOTTLE IV ONE (11:57)
[2019-04-29] MEDS ORDERED: JEVITY 1.2 1000 ML LIQUID GT PRN (14:45)
[2019-04-29] MEDS: LORAZEPAM 2 MG/1 ML VIAL IV PRN (16:26)
[2019-04-29] MEDS: IV D5/ 0.9% NACL 1,000 ML IV PRN (17:32)
[2019-04-29] MEDS: MIRTAZAPINE 15 MG TABLET PO SCH (20:44)
[2019-04-29] MEDS: Z GUARD REMEDY PASTE 57 GM TUBE TOP PRN (20:45)
[2019-04-30] MEDS: BLOOD SUGAR DIAGNOSTIC 1 EACH STRIP VI SCH ×3 (00:27→11:38)
[2019-04-30 00:28] VITALS: BP 123/81
[2019-04-30] MEDS: LORAZEPAM 0.5 MG TABLET PO PRN ×2 (02:53→13:46)
[2019-04-30] MEDS: IV D5/ 0.9% NACL 1,000 ML IV PRN (03:51)
[2019-04-30 04:00] VITALS: BP 152/72
[2019-04-30 06:03] LABS: CARBON DIOXIDE 28 mmol/L (21-32); CHLORIDE 110 mmol/L (98-107); CREATININE 0.9 mg/dL (0.6-1.3); GLUCOSE 127 mg/dL (74-106); POTASSIUM 3.6 mmol/L (3.5-5.1); UREA NITROGEN, BLOOD 5 mg/dL (7-18)
[2019-04-30] MEDS: IPRATROPIUM BROMIDE 0.5 MG/2.5 ML NEBU NEB SCH ×2 (07:38→13:41)
[2019-04-30] MEDS: ALBUTEROL SULFATE 1.25 MG/3 ML NEBU NEB SCH ×2 (07:38→13:41)
[2019-04-30] MEDS: ACETYLCYSTEINE 20% 800 MG/4 ML VIAL NEB SCH (07:38)
[2019-04-30 08:00] VITALS: BP 137/50
[2019-04-30] MEDS: FLUTICASONE/VILANTEROL 1 EACH BLST.W.DEV IH SCH (08:22)
[2019-04-30] MEDS: CULTURELLE CAPSULE PO SCH (08:25)
[2019-04-30] MEDS: risperiDONE 0.5 MG TABLET PO SCH (08:26)
[2019-04-30] MEDS: ASPIRIN EC 81 MG TABLET.DR PO SCH (08:26)
[2019-04-30] MEDS: ACETAMINOPHEN 325 MG TABLET PO PRN ×2 (08:26→13:46)
[2019-04-30] MEDS: METOPROLOL TARTRATE 5 MG/5 ML VIAL IVP SCH (08:28)
[2019-04-30] MEDS: Z GUARD REMEDY PASTE 57 GM TUBE TOP PRN (08:28)
[2019-04-30] MEDS ORDERED: PANTOPRAZOLE ORAL SUSPENSION 40 MG SUSPDR.PKT GT SCH (09:00)
[2019-04-30 11:10] VITALS: BP 112/69
[2019-04-30] MEDS ORDERED: ALBU1.25 NEB (13:07)
[2019-04-30] MEDS ORDERED: LACT-209 GT (13:07)
[2019-04-30 15:39] VITALS: BP 135/72
[2019-04-30] MEDS ORDERED: CARVEDILOL 6.25 MG TABLET PO SCH (18:00)
[2019-05-01] MEDS ORDERED: LISINOPRIL 5 MG TABLET PO SCH (09:00)
== END 2019-04-30 16:30 | DRG 871 ==
LOC: ER 13:04 → CCU 14:23 → TELE-TD3 04-22 17:00 → TELE3 04-26 09:25 → TELE-TD3 04-29 04:01
PROVIDERS: ADMIT Nurse Practitioner Acute Care
PROC: 0DH63UZ Insertion of Feeding Device into Stomach, Percutaneous Approach (ICD-10-PCS; principal; 2019-04-29)
DX: A41.9 Sepsis, unspecified organism (principal); J69.8 Pneumonitis due to inhalation of other solids and liquids; J96.01 Acute respiratory failure with hypoxia; J96.02 Acute respiratory failure with hypercapnia; I21.A1 Myocardial infarction type 2; I50.23 Acute on chronic systolic (congestive) heart failure; G93.41 Metabolic encephalopathy; N17.0 Acute kidney failure with tubular necrosis; J44.1 Chronic obstructive pulmonary disease with (acute) exacerbation; Z68.1 Body mass index [BMI] 19.9 or less, adult; J98.11 Atelectasis; I47.2 Ventricular tachycardia; E46 Unspecified protein-calorie malnutrition; J44.9 Chronic obstructive pulmonary disease, unspecified; E78.5 Hyperlipidemia, unspecified; E11.9 Type 2 diabetes mellitus without complications; Z79.4 Long term (current) use of insulin; F03.90 Unspecified dementia, unspecified severity, without behavioral disturbance, psychotic disturbance, mood disturbance, and anxiety; F29 Unspecified psychosis not due to a substance or known physiological condition; Z88.0 Allergy status to penicillin; I11.0 Hypertensive heart disease with heart failure; S80.811A Abrasion, right lower leg, initial encounter; X58.XXXA Exposure to other specified factors, initial encounter; Y92.89 Other specified places as the place of occurrence of the external cause; Z74.01 Bed confinement status; R62.7 Adult failure to thrive; F32.9 Major depressive disorder, single episode, unspecified; E86.1 Hypovolemia; I25.5 Ischemic cardiomyopathy; I25.10 Atherosclerotic heart disease of native coronary artery without angina pectoris; R13.10 Dysphagia, unspecified; Z79.51 Long term (current) use of inhaled steroids
CPT/HCPCS: 36415; 36600; 70030-TC; 71045; 83550; 83605; 83735; 84100; 85025; 85730; 87040; 87070; 87086; 93005; 93307; 94640; 94664; A4217; A4663; C9113; G0378; J0696; J1100; J1630; J1815; J2060; J3370; J3475; J3480; J3490; J3590; J7030; J7040; J7042; J7060; J7614